=== PATIENT | female | born 1955 ===

== ENCOUNTER 2020-09-14 07:47 | Day surgery (SDC) | payer OTHER ==
[~2020-09-14 07:47] MED LIST: BENADR
== END 2020-09-14 21:30 | disposition home or self-care (01) ==
LOC: CIR.AMB 07:47
PROVIDERS: ATTEND Colon & Rectal Surgery
DX: K62.89 Other specified diseases of anus and rectum (principal); Z20.822 Contact with and (suspected) exposure to COVID-19